=== PATIENT | male | born 1925 | race Caucasian/White ===

== ENCOUNTER → 2017-03-20 | Outpatient (CLI) | payer MEDICARE, BC ==
[~2017-03-20] MED LIST: BAYER CHEWABLE81 MG PO; CARDIZEM CD240 MG PO; CIPROFLOXACIN500 M3 PO; COLACE100 MG PO; CRESTOR10 MG PO; FLAGYL500 MG PO; FOLIC ACID1 MG PO; KEFLEX500 MG PO; MAGNESIUM500 MG PO; MAVIK4 MG PO; MIRALAX255 GM PO; NORCO 5-325 TA1 EACH PO; PLAVIX 75 MG TA75 M1 PO; TOPROL XL50 MG PO; TUMS PO; ZETIA10 MG PO; [UNRECOGNIZED DRUG - CODE] PO
[2017-03-20 09:13] LABS: CHOLESTEROL 165 mg/dL (<200); HDL CHOLESTEROL 61 mg/dL (>40); LDL CHOLESTEROL 90 mg/dL (<100); SERUM ASSESSMENT Clear; SGPT 45 U/L (30-65); TC:HDL 2.7 Ratio (Not establshd); TRIGLYCERIDE 72 mg/dL (<150); VLDL 14 mg/dL (<40)
== END ==
LOC: M.LAB 08:30
PROVIDERS: Internal Medicine Cardiovascular Disease
DX: I25.10 Atherosclerotic heart disease of native coronary artery without angina pectoris (principal); E78.5 Hyperlipidemia, unspecified